=== PATIENT | female | born 1965 | race Two or more races ===

== ENCOUNTER 2022-04-29 06:31 | Emergency (ER) | payer OTHER ==
[~2022-04-29] VITALS: Ht 162.6 cm; Wt 87.0 kg
--- NOTE | ~2022-04-29 | EKG ---
[facility] [address] [facility] [place], [place] [address] Draft EK completed, results pending confirmation PATIENT NAME: PEDRO CHAVEZ Electrocardiogram DATE OF : 67 PHYSICIAN: PRELIMINARY REPORT #: [id number] REPORT IS CONFIDENTIAL AND NOT TO BE RELEASED WITHOUT AUTHORIZATION
[~2022-04-29 06:31] MED LIST: NORCO 5-325 TA1 EACH PO
[2022-04-29] MEDS ORDERED: VENTOLIN HFA18 GM INH (07:31)
== END 2022-04-29 07:40 | disposition home or self-care (01) ==
LOC: ED 06:31
DX: J20.9 Acute bronchitis, unspecified (principal)
CPT/HCPCS: 36415; 71045; 80053; 83735; 84484; 85025; 93005; 93010; 99285-25; A9270